=== PATIENT | male | born 1990 | race Two or more races ===

== ENCOUNTER 2018-06-30 14:30 | Emergency (ER) | payer MEDICAID ==
[~2018-06-30] VITALS: Ht 175.3 cm; Wt 82.2 kg
[2018-06-30 15:24] LABS: BASOPHILS % (AUTO) 0.2 % (0-1); EOSINOPHILS # (AUTO) 0.3 X10'3 (0-0.9); EOSINOPHILS % (AUTO) 1.6 % (0-6); HEMATOCRIT 40.7 % (42.0-52.0); HEMOGLOBIN 13.9 g/dl (14.0-17.9); LYMPHOCYTES # (AUTO) 1.1 X10'3 (1.1-4.8); LYMPHOCYTES % (AUTO) 7.1 % (21-51); MEAN CORPUSCULAR HEMOGLOBIN 29.7 PG (27.0-31.0); MEAN CORPUSCULAR HGB CONC 34.1 % (33.0-36.5); MEAN PLATELET VOLUME 6.5 FL (7.4-10.4); MONOCYTES % (AUTO) 6.2 % (2-12); NEUTROPHILS # (AUTO) 13.6 X10'3 (1.8-7.7); NEUTROPHILS % (AUTO) 84.9 % (42-75); PLATELET COUNT 412 X10'3 (140-440); RED BLOOD COUNT 4.68 X10'6 (4.70-6.10); RED CELL DISTRIBUTION WIDTH 12.3 % (11.5-14.5)
[2018-06-30 15:36] LABS: ALANINE AMINOTRANSFERASE 16 U/L (12-78); ALBUMIN/GLOBULIN RATIO 0.6 (1.1-1.5); ALKALINE PHOSPHATASE 104 IU/L (46-116); ANION GAP 4 (8-16); ASPARTATE AMINO TRANSFERASE 17 U/L (10-37); BILIRUBIN,TOTAL 0.4 MG/DL (0.1-1.0); BLOOD UREA NITROGEN 15 MG/DL (7-18); BUN/CREATININE RATIO 17.6 (5.4-32.0); CALCIUM 9.1 MG/DL (8.5-10.1); CHLORIDE 100 MMOL/L (99-107); CREATININE 0.85 MG/DL (0.60-1.10); GLUCOSE 236 MG/DL (70-104); SODIUM 135 MMOL/L (135-145); TOTAL CARBON DIOXIDE 31.2 MMOL/L (24-32); TOTAL PROTEIN 8.2 G/DL (6.4-8.2); eGFR > 90 ML/MIN
[2018-06-30] MEDS ORDERED: iohexol 300mg/ml 100ml inj. ONE (15:47)
[2018-06-30] MEDS ORDERED: clindamycin 600mg/D5W 50ml 50 ML IV ONE (15:50)
[2018-06-30] MEDS ORDERED: dexamethasone 0.5 mg/5ml unit-dose oral solution PO STA (15:50)
[2018-06-30] MEDS ORDERED: dexamethasone sod phosphate 10mg/ml inj PO ONE (16:00)
[2018-06-30] MEDS ORDERED: CLIN150C2 PO (17:35)
[2018-06-30 18:05] VITALS: BP 119/71
== END 2018-06-30 18:09 | disposition home or self-care (01) ==
LOC: ER 14:31
DX: J36 Peritonsillar abscess (principal); Z79.2 Long term (current) use of antibiotics
CPT/HCPCS: 36415; 42700; 70491; 80053; 85025; 96365; 99285; J1100; J3490; J7030; Q9967; J8540